=== PATIENT | female | born 1995 | race Caucasian/White ===

== ENCOUNTER 2019-01-11 01:43 | Emergency (ER) | payer OTHER ==
[2019-01-11] MEDS ORDERED: AMOXICILLIN TR/POT CLAVULANATE 500-125 MG TAB PO ONE (04:32)
[2019-01-11] MEDS ORDERED: AMOXICILLIN TRIHYDRATE 500 MG CAPSULE PO ONE (04:32)
[2019-01-11] MEDS ORDERED: DIPH/PERTUSS(ACELL)/TETANUS VAC/PF 0.5 ML SYR (>=10YO) IM ONE (04:33)
--- NOTE | 2019-01-11 04:34 | ER Document Report ---
HPI - HPI Time Seen by Provider: 01/11/19 04:26 Pain Level: 2 Context: Patient is a 23-year-old female that comes emergency department for chief complaint of laceration to the right hand between the fourth and fifth digits over the palm of her hand. She states this happened just prior to arrival when she was trying to break up her personal dogs when they were fighting. She states dogs are up-to-date on vaccinations but she is not up-to-date on her tetanus. She denies any other injuries, she denies any past medical history, she denies . - REPRODUCTIVE LMP: 11/2018 Reproductive: DENIES: : Past Medical History - General Information source: Patient - Social History Smoking Status: Never Smoker Chew tobacco use (# tins/day): No Frequency of alcohol use: None Drug Abuse: None Lives with: Family Family History: Reviewed & Not Pertinent Patient has suicidal ideation: No Patient has homicidal ideation: No - Medical History Medical History: Negative Surgical Hx: Negative - Immunizations Immunizations up to date: Yes Hx Diphtheria, Pertussis, Tetanus Vaccination: Yes Vertical Provider Document - CONSTITUTIONAL General Appearance: WD/WN, No Apparent Distress - INFECTION CONTROL TRAVEL OUTSIDE OF THE [place] IN LAST 30 DAYS: No - HEENT HEENT: Atraumatic, Normal ENT Exam, Normocephalic - NECK Neck: Normal Inspection - RESPIRATORY Respiratory: Breath Sounds Normal, No Respiratory Distress - CARDIOVASCULAR Cardiovascular: Regular Rate, Regular Rhythm - GI/ABDOMEN Gastrointestinal: Abdomen Soft, Abdomen Non-Tender. negative: Abdomen Tender - BACK Back: Normal Inspection - MUSCULOSKELETAL/EXTREMETIES Musculoskeletal/Extremeties: MAEW, FROM, Tender - There is a small flap laceration over the palmar aspect of the right hand at the webbing between the fourth and fifth digits. This is easily explored and still superficial, no evidence of foreign body, normal strength with extension and flexion in the fourth and fifth digits, normal capillary refill and sensation, normal hand exam otherwise. - NEURO Level of Consciousness: Awake, Alert, Appropriate Motor/Sensory: No Motor Deficit, No Sensory Deficit - DERM Integumentary: Warm, Dry, No Rash Course - Re-evaluation Re-evalutation: Wound is easily explored and is superficial with no evidence of foreign body. No evidence of concerning injury to tendon, nerve, large vessel. Discussed with patient. We will not close this because of the risk of infection. Starting on antibiotics, clean the wound thoroughly, dressed, discussed care, follow-up, return precautions. Updated tetanus. Patient states understanding and agreement. - Vital Signs Vital signs: Temp Pulse Resp BP Pulse Ox 98.5 F 110 H 16 133/88 H 100 01/11/19 01:49 01/11/19 01:49 01/11/19 01:49 01/11/19 01:49 01/11/19 01:49 Discharge - Discharge Clinical Impression: Laceration of right hand Qualifiers: Encounter type: initial encounter Foreign body presence: without foreign body Qualified Code(s): S61.411A - Laceration without foreign body of right hand, initial encounter Dog bite Qualifiers: Encounter type: initial encounter Qualified Code(s): W54.0XXA - Bitten by dog, initial encounter Disposition: HOME, SELF-CARE Additional Instructions: Unfortunately we could not close the laceration on your right hand due to risk of infection. This needs to heal with time, keep clean, clean with soap and water, keep topical antibiotic over the area. It is very important that you take the antibiotics as prescribed, I do recommend that you take an [id number] probiotic to avoid diarrhea while taking. Take Tylenol or ibuprofen for pain. Rest your hand especially initially. Follow-up with primary care. Return if you worsen including developing pain, d iscolored drainage, spreading redness, swelling, fever/chills, or any other concerning symptoms. Prescriptions: Amox Tr/Potassium Clavulanate [Augmentin 875-125 Tablet] 1 tab PO BID 7 Days #14 tablet Forms: Return to Work
[2019-01-11 05:26] VITALS: BP 125/78
== END 2019-01-11 05:25 | disposition home or self-care (01) ==
LOC: ER 01:43
DX: S61.411A Laceration without foreign body of right hand, initial encounter (principal); W54.0XXA Bitten by dog, initial encounter; Y92.009 Unspecified place in unspecified non-institutional (private) residence as the place of occurrence of the external cause; Z23 Encounter for immunization
CPT/HCPCS: 90715